=== PATIENT | male | born 1995 | race Caucasian/White ===

== ENCOUNTER → 2016-10-20 | Outpatient (CLI) | payer OTHER ==
[~2016-10-20] MED LIST: CEPH500C PO
== END ==
LOC: C.LAB 03:59
DX: Z02.83 Encounter for blood-alcohol and blood-drug test (principal)

== ENCOUNTER 2021-12-15 12:34 | Inpatient (IN) ==
--- NOTE | 2021-12-15 13:07 | Emergency Department Note ---
Impression & Plan Hypokalemia, Methamphetamine intoxication, Leukocytosis ED Provider Note NAME: ANIYA MULTANI AGE: 26 SEX: M : 1995 ARRIVES VIA: Ambulance INFORMANT: Patient, ED PROVIDER(S): Lex Alvarez MD Chief Complaint: Methamphetamine use HPI: Patient presents from home via EMS due to concern for methamphetamine use as the patient was tachycardic and diaphoretic. The patient reports that he ingested the methamphetamine this morning. Last time used was several days ago the patient has been using methamphetamines for approximate 4 months. Patient denies any chest pains or shortness of breath or abdominal pain. Patient denies any head or neck pain. No numbness tingling or focal weakness. ROS: See HPI for pertinent positives and negatives. A total of 10 systems were reviewed and otherwise negative. May be limited secondary to drug use. Past medical history: See below Surgical history: See below Social history: See below Physical Exam: GENERAL: No apparent distress EYE EXAM: Normal conjunctiva. PERRL and dilated, 5 to 6 cm, no anisocoria, extraocular movements are intact. Oropharynx: Poor dentition. NECK: Supple, no nuchal rigidity, no adenopathy, non-tender. No signs of meningismus. FROM of the neck with good chin to chest and neck extension. No stridor. LUNGS: Clear to auscultation. Normal chest wall mechanics. HEART: Tachycardic and regular, no MRG. ABDOMEN: Abdomen soft, non-tender, normo-active bowel sounds, no masses, no rebound or guarding. BACK: No CVA TTP. SKIN: No rashes and no bruising. UPPER EXTREMITIES: Upper extremities are grossly normal. LOWER EXTREMITIES: Grossly normal, no edema. NEURO EXAM: A&O x3, cranial nerves II-XII grossly intact, normal speech, moves a ll 4 extremities. Differential diagnoses: Overdose, toxicologic, infection, hypoglycemia, electrolyte abnormalities, cardiac sources, intracerebral event, neurologic, trauma, as well as other pathologies. Course: Patient was seen and evaluated the bedside. Full history physical exam was performed. EKG interpreted by me Sinus tachycardia, rate of 131, right axis deviation, no obvious ST elevations. No prior EKGs for comparison. Imaging Studies: See Below Cardiac monitoring: An order was placed for continuous cardiac monitoring. The monitor shows a rate of 122 with tachycardic and regular rhythm. MDM: Patient was seen due to concern for methamphetamine ingestion. Blood work was obtained along with EKG. I was informed the patient did have white count of 32 so the patient did have blood cultures completed along with a lactate was given an empiric dose of cefepime and additional IV fluids. I did order the patient Ativan initially. I did speak with poison control Henry who recommended supportive care and to administer benzodiazepines as needed for tachycardia and or seizures in addition to regular standard care. Tox labs also ordered. The patient has normal kidney function Pro-Braeden is not elevated. Lowers suspicion for infection; however, the patient does have significant elevation white count patient's initial lactate is normal. Patient salicylate Tylenol and alcohol are negative. COVID-negative. Chest x-ray is clear. Given the patient's white count and associated drug use do think patient would benefit from continued monitoring. I did speak the on-call hospitalist Dr. Dominguez and the patient was admitted to the medicine service Past Med/Surg History Medical History No pertinent past medical history Surgical History (Updated 12/15/21 @ 13:53 by Lex Alvarez MD) No pertinent past surgical history Social History (Updated 12/15/21 @ 13:53 by Lex Alvarez MD) Smoking Status: Current some day smoker Hx Alcohol Use: No Hx Substance Use: Yes Non-Prescribed Medications: Methamphetamines Preferred Language: Estonian Feels Safe at Home: Yes Allergies Allergies Allergy/AdvReac Type Severity Reaction Status Date / Time amoxicillin Allergy Intermediate Hives Verified 12/15/21 16:09 Home Meds Home Medications Medication Instructions Recorded Confirmed acetaminophen 500 mg tablet 1,000 mg PO DIRECTED PRN Pain 12/15/21 12/15/21 (Tylenol Extra Strength) Results & Data (ED) Vital Signs Vital Signs - 24 hr 12/15/21 12:47 12/15/21 12:47 12/15/21 12:47 Temperature 36.9 C Temperature Source Oral Pulse Rate 126 H Pulse Rate [Apical] 131 H Respiratory Rate 21 19 Respiratory Depth Normal Blood Pressure 137/89 Blood Pressure [Left Arm] Blood Pressure Mean 105 Blood Pressure Mean [Left Arm] Pulse Oximetry 100 100 97 Oxygen Delivery Method Room Air Room Air Room Air Oxygen Flow Rate 0 Sepsis Recent Fever Within 48 Hours No Sepsis New/Unexplained Change in Mental Status N/A Sepsis Action Taken by Nursing No Action Required 12/15/21 14:39 12/15/21 14:39 12/15/21 17:17 Temperature Temperature Source Pulse Rate Pulse Rate [Apical] 127 H 113 H Respiratory Rate 20 18 Respiratory Depth Blood Pressure Blood Pressure [Left Arm] 133/87 134/80 Blood Pressure Mean Blood Pressure Mean [Left Arm] 102 98 Pulse Oximetry 96 96 96 Oxygen Delivery Method Room Air Room Air Oxygen Flow Rate Sepsis Recent Fever Within 48 Hours Sepsis New/Unexplained Change in Mental Status Sepsis Action Taken by Assisted Medications Current Medication List: was personally reviewed by me Laboratory Data Attestation: I reviewed the patient's lab results. Result diagrams: 12/15/21 12:41 12/15/21 12:41 Lab Results 12/15/21 12/15/21 12/15/21 Range/Units 12:41 12:41 12:41 WBC 30.42 H* (4.8-10.8) K/ul RBC 4.78 (4.63-6.08) M/uL Hgb 14.2 (14.0-18.0) g/dl Hct 39.2 L (40.1-51.0) % MCV 82.0 (80.0-100.0) fL MCH 29.7 (25.0-34.0) pg MCHC 36.2 H (32.0-36.0) g/dL RDW Std Deviation 39.6 (36.4-46.3) fL RDW Coeff of Tiara 13.2 (11.5-14.5) % Plt Count 451 H (130-400) K/uL MPV 9.0 L (9.4-12.4) fL Immature Gran % (Auto) 2.0 % Neut % (Auto) 82.7 % Lymph % (Auto) 7.9 % [place] % (Auto) 6.9 % Eos % (Auto) 0.1 % Baso % (Auto) 0.4 % Neut # (Auto) 25.19 H (1.4-6.5) K/uL Lymph # (Auto) 2.39 (1.2-3.4) K/uL [place] # (Auto) 2.09 H (0.24-0.82) K/uL Eos # (Auto) 0.04 (0-0.50) K/uL Baso # (Auto) 0.11 (0-0.2) K/uL Immature Gran # (Auto) 0.60 H (0.00-0.02) K/uL ESR (0-15) mm/hr Sodium 140 (136-145) mmol/L Potassium 3.2 L (3.5-5.1) mmol/L Chloride 106 (98-107) mmol/L Carbon Dioxide 24 (21-32) mmol/L Anion Gap 10 (3-11) BUN 13 (6-23) mg/dl Creatinine 1.33 (0.6-1.4) mg/dl Est Cr Clr Drug Dosing 73.1 ml/min Est GFR ( Amer) 83.7 ml/min Est GFR (Non-Af Amer) 72.2 ml/min BUN/Creatinine Ratio 9.8 L (10-20) Glucose 65 L (70-99(Fasting)) mg/dl Lactate (0.4-2.0) mmol/L Calcium 10.0 (8.5-10.1) mg/dl Magnesium 2.0 (1.7-2.4) mg/dl Total Bilirubin 0.4 (0.2-1.0) mg/dl AST 17 (13-39) U/L ALT 11 (7-52) U/L Alkaline Phosphatase 63 (34-104) U/L Total Creatine Kinase (30-223) U/L C-Reactive Protein (0-0.5) mg/dl Total Protein 7.7 (6.0-8.3) gm/dl Albumin 4.6 (3.4-5.0) gm/dl Globulin 3.1 (2.5-4.0) gm/dl Albumin/Globulin Ratio 1.5 (0.9-2) Procalcitonin (0-0.5) ng/ml Salicylates < 3.0 L (3.0-30) mg/dl Acetaminophen < 3 L (10-30) ug/ml Ethyl Alcohol mg/dL (<10.0) mg/dl SARS-CoV-2, RNA, NAAT (NEGATIVE) 12/15/21 12/15/21 12/15/21 Range/Units 12:41 12:41 12:41 WBC (4.8-10.8) K/ul RBC (4.63-6.08) M/uL Hgb (14.0-18.0) g/dl Hct (40.1-51.0) % MCV (80.0-100.0) fL MCH (25.0-34.0) pg MCHC (32.0-36.0) g/dL RDW Std Deviation (36.4-46.3) fL RDW Coeff of Tiara (11.5-14.5) % Plt Count (130-400) K/uL MPV (9.4-12.4) fL Immature Gran % (Auto) % Neut % (Auto) % Lymph % (Auto) % [place] % (Auto) % Eos % (Auto) % Baso % (Auto) % Neut # (Auto) (1.4-6.5) K/uL Lymph # (Auto) (1.2-3.4) K/uL [place] # (Auto) (0.24-0.82) K/uL Eos # (Auto) (0-0.50) K/uL Baso # (Auto) (0-0.2) K/uL Immature Gran # (Auto) (0.00-0.02) K/uL ESR (0-15) mm/hr Sodium (136-145) mmol/L Potassium (3.5-5.1) mmol/L Chloride (98-107) mmol/L Carbon Dioxide (21-32) mmol/L Anion Gap (3-11) BUN (6-23) mg/dl Creatinine (0.6-1.4) mg/dl Est Cr Clr Drug Dosing ml/min Est GFR ( Amer) ml/min Est GFR (Non-Af Amer) ml/min BUN/Creatinine Ratio (10-20) Glucose (70-99(Fasting)) mg/dl Lactate (0.4-2.0) mmol/L Calcium (8.5-10.1) mg/dl Magnesium (1.7-2.4) mg/dl Total Bilirubin (0.2-1.0) mg/dl AST (13-39) U/L ALT (7-52) U/L Alkaline Phosphatase (34-104) U/L Total Creatine Kinase 205 (30-223) U/L C-Reactive Protein (0-0.5) mg/dl Total Protein (6.0-8.3) gm/dl Albumin (3.4-5.0) gm/dl Globulin (2.5-4.0) gm/dl Albumin/Globulin Ratio (0.9-2) Procalcitonin < 0.05 (0-0.5) ng/ml Salicylates (3.0-30) mg/dl Acetaminophen (10-30) ug/ml Ethyl Alcohol mg/dL < 10.0 (<10.0) mg/dl SARS-CoV-2, RNA, NAAT (NEGATIVE) 12/15/21 12/15/21 12/15/21 Range/Units 14:10 15:53 15:53 WBC (4.8-10.8) K/ul RBC (4.63-6.08) M/uL Hgb (14.0-18.0) g/dl Hct (40.1-51.0) % MCV (80.0-100.0) fL MCH (25.0-34.0) pg MCHC (32.0-36.0) g/dL RDW Std Deviation (36.4-46.3) fL RDW Coeff of Tiara (11.5-14.5) % Plt Count (130-400) K/uL MPV (9.4-12.4) fL Immature Gran % (Auto) % Neut % (Auto) % Lymph % (Auto) % [place] % (Auto) % Eos % (Auto) % Baso % (Auto) % Neut # (Auto) (1.4-6.5) K/uL Lymph # (Auto) (1.2-3.4) K/uL [place] # (Auto) (0.24-0.82) K/uL Eos # (Auto) (0-0.50) K/uL Baso # (Auto) (0-0.2) K/uL Immature Gran # (Auto) (0.00-0.02) K/uL ESR 12 (0-15) mm/hr Sodium (136-145) mmol/L Potassium (3.5-5.1) mmol/L Chloride (98-107) mmol/L Carbon Dioxide (21-32) mmol/L Anion Gap (3-11) BUN (6-23) mg/dl Creatinine (0.6-1.4) mg/dl Est Cr Clr Drug Dosing ml/min Est GFR ( Amer) ml/min Est GFR (Non-Af Amer) ml/min BUN/Creatinine Ratio (10-20) Glucose (70-99(Fasting)) mg/dl Lactate 1.4 (0.4-2.0) mmol/L Calcium (8.5-10.1) mg/dl Magnesium (1.7-2.4) mg/dl Total Bilirubin (0.2-1.0) mg/dl AST (13-39) U/L ALT (7-52) U/L Alkaline Phosphatase (34-104) U/L Total Creatine Kinase (30-223) U/L C-Reactive Protein < 0.50 (0-0.5) mg/dl Total Protein (6.0-8.3) gm/dl Albumin (3.4-5.0) gm/dl Globulin (2.5-4.0) gm/dl Albumin/Globulin Ratio (0.9-2) Procalcitonin (0-0.5) ng/ml Salicylates (3.0-30) mg/dl Acetaminophen (10-30) ug/ml Ethyl Alcohol mg/dL (<10.0) mg/dl SARS-CoV-2, RNA, NAAT (NEGATIVE) 12/15/21 Range/Units 15:55 WBC (4.8-10.8) K/ul RBC (4.63-6.08) M/uL Hgb (14.0-18.0) g/dl Hct (40.1-51.0) % MCV (80.0-100.0) fL MCH (25.0-34.0) pg MCHC (32.0-36.0) g/dL RDW Std Deviation (36.4-46.3) fL RDW Coeff of Tiara (11.5-14.5) % Plt Count (130-400) K/uL MPV (9.4-12.4) fL Immature Gran % (Auto) % Neut % (Auto) % Lymph % (Auto) % [place] % (Auto) % Eos % (Auto) % Baso % (Auto) % Neut # (Auto) (1.4-6.5) K/uL Lymph # (Auto) (1.2-3.4) K/uL [place] # (Auto) (0.24-0.82) K/uL Eos # (Auto) (0-0.50) K/uL Baso # (Auto) (0-0.2) K/uL Immature Gran # (Auto) (0.00-0.02) K/uL ESR (0-15) mm/hr Sodium (136-145) mmol/L Potassium (3.5-5.1) mmol/L Chloride (98-107) mmol/L Carbon Dioxide (21-32) mmol/L Anion Gap (3-11) BUN (6-23) mg/dl Creatinine (0.6-1.4) mg/dl Est Cr Clr Drug Dosing ml/min Est GFR ( Amer) ml/min Est GFR (Non-Af Amer) ml/min BUN/Creatinine Ratio (10-20) Glucose (70-99(Fasting)) mg/dl Lactate (0.4-2.0) mmol/L Calcium (8.5-10.1) mg/dl Magnesium (1.7-2.4) mg/dl Total Bilirubin (0.2-1.0) mg/dl AST (13-39) U/L ALT (7-52) U/L Alkaline Phosphatase (34-104) U/L Total Creatine Kinase (30-223) U/L C-Reactive Protein (0-0.5) mg/dl Total Protein (6.0-8.3) gm/dl Albumin (3.4-5.0) gm/dl Globulin (2.5-4.0) gm/dl Albumin/Globulin Ratio (0.9-2) Procalcitonin (0-0.5) ng/ml Salicylates (3.0-30) mg/dl Acetaminophen (10-30) ug/ml Ethyl Alcohol mg/dL (<10.0) mg/dl SARS-CoV-2, RNA, NAAT NEGATIVE (NEGATIVE) Administered Medications Discontinued Medications Dextrose (Dextrose 50% 50 Ml Syringe) 50 ml IV NOW ONE Stop: 12/15/21 13:54 Last Admin: 12/15/21 14:38 Dose: 50 ml Documented By: KV Sodium Chloride (Nss 1000ml) 1,000 mls @ 999 mls/hr IV .Q1H1M CAMELIA Stop: 12/15/21 14:30 Last Infusion: 12/15/21 15:58 Dose: 0 mls/hr Documented By: Admin: 12/15/21 13:35 Dose: 999 mls/hr Documented By: CUCA Cefepime HCl (Maxipime) 2,000 mg in 20 mls @ 5 mls/min IV NOW STA; Protocol Stop: 12/15/21 13:47 Last Admin: 12/15/21 14:37 Dose: 5 mls/min Documented By: PREMA Sodium Chloride (Nss 1000ml) 1,000 mls @ 999 mls/hr IV .Q1H1M ONE Stop: 12/15/21 14:46 Last Infusion: 12/15/21 15:57 Dose: 0 mls/hr Documented By: Admin: 12/15/21 14:37 Dose: 999 mls/hr Documented By: PREMA Lorazepam (Lorazepam 2 Mg/2 Ml Syr) 2 mg IV NOW STA; Protocol Stop: 12/15/21 13:29 Last Admin: 12/15/21 13:35 Dose: 2 mg Documented By: CUCA Imaging Data Radiologist's Impression: Chest X-Ray 12/15/21 13:45 SINGLE VIEW CHEST CLINICAL HISTORY: Leukocytosis. Drug abuse. FINDINGS: 2 AP, portable, upright chest radiographs are compared to study dated 05/13/2007. The cardiomediastinal silhouette is unremarkable. The lungs and pleural spaces are clear. No pneumothorax is seen. The bony thorax is grossly intact. IMPRESSION: No active disease in the chest. ACT 112: Negative or not required by law. Electronically signed by: Ashok La M.D. 12/15/2021 2:04 PM Discharge Plan Visit Data Chief Complaint: Overdose (Accidental) ED Provider: Lex Alvarez Discharge Problem: Hypokalemia, Methamphetamine intoxication, Leukocytosis Patient Disposition: Admitted As Inpatient Discharge Instructions Interventions: ED Discharge Assessment Last Done: 12/15/21 17:51 Forms Stand Alone Forms: Jybe Prescriptions Prescriptions: No Action acetaminophen [Tylenol Extra Strength] 500 mg Tablet 1,000 mg PO DIRECTED PRN (Reason: Pain) Referrals Referrals: PCP,NO [Primary Care Provider] -
[2021-12-15] MEDS ORDERED: LORazepam 2 MG/1 ML VIAL IV STA ×2 (13:28→16:56)
[2021-12-15] MEDS ORDERED: SODIUM CHLORIDE 0.9% 1000ML 1,000 ML IV SCH (13:30)
[2021-12-15 13:39] LABS: Hematocrit (blood only) 39.2 % (40.1-51.0); Hemoglobin 14.2 g/dl (14.0-18.0); Mean Corpuscular Hemoglobin 29.7 pg (25.0-34.0); Mean Corpuscular Hgb Conc 36.2 g/dL (32.0-36.0); Platelet Count 451 K/uL (130-400); RDW Coefficient of Variation 13.2 % (11.5-14.5); RDW Standard Deviation 39.6 fL (36.4-46.3); Red Blood Count 4.78 M/uL (4.63-6.08); White Blood Count 30.42 K/ul (4.8-10.8)
[2021-12-15] MEDS ORDERED: CEFEPIME 2,000 MG/20 ML VIAL IV STA (13:44)
[2021-12-15] MEDS ORDERED: SODIUM CHLORIDE 0.9% 1000ML 1,000 ML IV ONE (13:46)
[2021-12-15 13:48] LABS: Albumin Globulin Ratio 1.5 (0.9-2); Albumin Level 4.6 gm/dl (3.4-5.0); BUN Creatinine Ratio 9.8 (10-20); Bilirubin,Total 0.4 mg/dl (0.2-1.0); Creatinine Clr Calc Pharmacy 73.1 ml/min; Est GFR (African American) 83.7 ml/min; Est GFR (Non-African American) 72.2 ml/min; Globulin 3.1 gm/dl (2.5-4.0); Potassium 3.2 mmol/L (3.5-5.1); Total Protein 7.7 gm/dl (6.0-8.3)
[2021-12-15] MEDS ORDERED: DEXTROSE 50% 50 ML SYRINGE IV ONE (13:53)
[2021-12-15 14:04] LABS: Basophils # (auto) 0.11 K/uL (0-0.2); Basophils % (auto) 0.4 %; Eosinophils # (auto) 0.04 K/uL (0-0.50); Eosinophils % (auto) 0.1 %; Lymphocytes # (auto) 2.39 K/uL (1.2-3.4); Lymphocytes % (auto) 7.9 %; Monocytes # (auto) 2.09 K/uL (0.24-0.82); Monocytes % (auto) 6.9 %; Neutrophils # (auto) 25.19 K/uL (1.4-6.5); Neutrophils % (auto) 82.7 %
--- NOTE | 2021-12-15 14:05 | XRay Report ---
SINGLE VIEW CHEST CLINICAL HISTORY: Leukocytosis. Drug abuse. FINDINGS: 2 AP, portable, upright chest radiographs are compared to study dated 05/13/2007. The cardio mediastinal silhouette is unremarkable. The lungs and pleural spaces are clear. No pneumothorax is se en. The bony thorax is grossly intact. IMPRESSION: No active disease in the chest. ACT 112: Negative or not required by law. Electronically signed by: Ashok La M.D. 12/15/2021 2:04 PM
[2021-12-15 14:15] LABS: Acetaminophen < 3 ug/ml (10-30); Salicylate < 3.0 mg/dl (3.0-30)
--- NOTE | 2021-12-15 15:49 | Electrocardiogram Report ---
Test Reason : Blood Pressure : / mmHG Vent. Rate : 131 BPM Atrial Rate : 131 BPM P-R Int : 128 ms QRS Dur : 086 ms QT Int : 304 ms P-R-T Axes : 071 097 029 degrees QTc Int : 448 ms Sinus tachycardia Left atrial enlargement Rightward axis Borderline ECG When compared with ECG of 10-MAR-2010 02:38, Vent. rate has increased BY 49 BPM Confirmed by Dalton Freire ([id number]) on 12/15/2021 3:49:02 PM Referred By: Confirmed By:Dalton Freire
--- NOTE | 2021-12-15 16:49 | History & Physical Report ---
Date of Service December 15, 2021 Assessment & Plan (1) Methamphetamine intoxication: Plan: with associated tachycardia and tremulousness - Admit to med/surg with telemetry - Ativan 1mg IV q4h prn agitation - Aggressive IVF w/ NSS at 150 ml/hr - Consult case management for interest in inpatient drug rehab - UDS ordered by ED, uncollected, may need to consider straight cath - Diltiazem 30mg PO TID ordered by admit attending - will determine ongoing need for this in AM (2) Leukocytosis: Plan: - Very low index of suspicion for acute infection, suspect reactive from meth use - Denies IV drug use, therefore low risk of endocarditis - Echo ordered - Given a dose of Cefepime in ED, will hold off on any further antibiotics - Blood cultures collected - CRP and Procal WNL (3) Hypokalemia: Plan: - Potassium supplemented with KCl 40meq PO x1 Plan Regular diet ordered No DVT ppx as he is young and healthy Repeat CBC, CMP, and mag in AM. Plan of care d/w Dr. Dominguez, further orders will be implemented as warranted. History of Present Illness Chief Complaint: Meth overdose Primary Care Provider: NO PCP Saturnino Becerril is a 26 yo male with a pmhx of opioid abuse with a prior overdose at age 14 who presented to the ER this afternoon accompanied by his father for evaluation after drug overdose and seizure-like activity was witnessed this morning. Patient who is currently awake and somewhat alert, reports that he overdosed on methamphetamine. He notes that he has been consistently using meth for the past 4 months, on an every other day basis. He either smokes it or snorts it. He normally lives with his grandmother, has been in and out of work. Father believes that he has been depressed. Was planning to take him today to apply for medical assistance in order for him to get insurance to cover treatment for depression. Per his father, he states that yesterday his grandmother reported that he was not acting normally. Was pacing up and down the stairs and was sweating. He left his grandmother's home and went to his father's. Per his dad, he was coherent and they were sitting together watching TV. Today, prior to leaving the house, father found patient in the corner convulsing and profusely sweating. He summoned EMS services and he was brought to the ER for further evaluation. In the ED, his HR is in the 130s, EKG demonstrates sinus tachycardia. His wbc count is markedly elevated at 30,420 but patient is afebrile, denies shortness of breath or chest pain. His potassium is slightly low at 3.2. CRP and proca lcitonin are both negative. He reports this is the first time he has overdosed on meth. He recognizes he has a problem and is interested in rehab. He denies use of IV drugs including heroin. Denies use of marijuana or alcohol use. He denies current opioid use. ED medicated pt with 2L of IVF, a dose of Ativan 2mg IV x1 and an amp of D50. He was also given a dose of Cefepime due to his leukocytosis. Pt has been referred to the hospitalist service for admission. Allergies Allergy/AdvReac Type Severity Reaction Status Date / Time amoxicillin Allergy Intermediate Hives Verified 12/15/21 16:09 Home Medications Medication Instructions Recorded Confirmed Type acetaminophen 500 mg tablet 1,000 mg PO DIRECTED PRN Pain 12/15/21 12/15/21 History (Tylenol Extra Strength) Past Med/Surg History Medical History No pertinent past medical history Surgical History No pertinent past surgical history Social History Smoking Status: Current every day smoker Hx Alcohol Use: No Hx Substance Use: Yes Non-Prescribed Medications: Methamphetamines Last Used Substance: Just Prior to Arrival Last Used Substance Other:: 1550 today Preferred Language: Bangladeshi Communication Ability: Effective 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 Denies fever, chills, fatigue, headache, nasal congestion, sore throat, cough, chest pain, shortness of breath, palpitations, orthopnea, PND, abdominal pain, n/v/d, constipation, dysuria, hematuria, frequency, back pain, joint pain or swelling, easy bruising or bleeding, skin lesions or rashes. Physical Exam Physical Exam: GENERAL: 26 yo Well-developed, well-nourished WM. NAD. EYES: EOMI. Pupils dilated. Anicteric. HENT: Moist mucous membranes. Poor dentition. No scleral icterus. No cervical lymphadenopathy. LUNGS: Clear to auscultation bilaterally. No accessory muscle use. No W/R/R. CARDIOVASCULAR: Tachycardic w/o m/g/r ABDOMEN: Soft, non-tender and non-distended. No palpable masses. Bowel sounds normoactive x 4 quad. EXTREMITIES: No edema. Non-tender. Peripheral pulses +2/4. NEUROLOGIC: A&O x3. Tremulous. No focal neurological deficits. CN II-XII grossly intact. PSYCHIATRIC: Cooperative. Appropriate mood and affect. SKIN: Warm, dry, intact. No rashes or lesions. Results & Data Results & Data ([facility]) Vital Signs (Past 12 Hours) Vital Signs Temp Pulse Pulse Resp BP BP Pulse Ox 12/15/21 14:39 127 H 20 133/87 96 12/15/21 14:39 96 12/15/21 12:47 131 H 19 97 12/15/21 12:47 100 12/15/21 12:47 36.9 C 126 H 21 137/89 100 O2 Del Method O2 Flow Rate 12/15/21 14:39 Room Air 12/15/21 14:39 Room Air 12/15/21 12:47 Room Air 12/15/21 12:47 Room Air 0 12/15/21 12:47 Room Air Laboratory Results 12/15/21 12:41 12/15/21 12:41 Diagnostic Findings Chest X-Ray 12/15/21 13:45 SINGLE VIEW CHEST CLINICAL HISTORY: Leukocytosis. Drug abuse. FINDINGS: 2 AP, portable, upright chest radiographs are compared to study dated 05/13/2007. The cardiomediastinal silhouette is unremarkable. The lungs and pleural spaces are clear. No pneumothorax is seen. The bony thorax is grossly intact. IMPRESSION: No active disease in the chest. ACT 112: Negative or not required by law. Electronically signed by: Ashok La M.D. 12/15/2021 2:04 PM Supervising Physician Co-Signing Physician Notes Patient seen and examined at bedside, during face to face encounter obtained a history and physical examination. I discussed plan of care with DOMINICK Bonilla and patient. I reviewed above note and agree with it. Patient admitted for methamphetamine induced psychotic disorder. will admit for supportive care. PG Care Time/CCT Total # of Minutes Spent Total Time Spent with Patient: Total time spent is greater than 50% in coordination of care (as documented) at patient's floor/unit and/or counseling patient: Coding Level of Care Code 83569 Initial Inpt Care Lvl 3 Diagnoses Methamphetamine intoxication F15.929 Leukocytosis D72.829 Hypokalemia E87.6
[2021-12-15] MEDS ORDERED: POTASSIUM CHLORIDE CRTAB 20 MEQ TABCR PO STA (17:25)
[2021-12-15] MEDS: SODIUM CHLORIDE 0.9% 1000ML 1,000 ML IV SCH (19:08)
[2021-12-15] MEDS ORDERED: ONDANSETRON INJ 2 MG/ML 2 ML VIAL IV PRN (21:04)
[2021-12-15] MEDS ORDERED: LORazepam 1 MG in SYRINGE 0 ML IV PRN (21:04)
[2021-12-15] MEDS ORDERED: ACETAMINOPHEN 325 MG TAB PO PRN (21:04)
[2021-12-15] MEDS: dilTIAZem HCL 30 MG TAB PO SCH (23:09)
--- NOTE | 2021-12-16 00:13 | Communication Note ---
Date of Service: December 16, 2021 informed by nurse of " disoriented and believes he is in a school and then in a shoot out in an alley. " patient subsequent pulled out his IV upgrading to PCU. ordering now dose IV ativan 3mg. continue one on one. on my exam, he does not appear agitated and is answering questions, states he pulled out IV because his arm felt funny. nursing staff expressed concern that the ativan might worsen agitation and asked about haldol or ketamine. reviewed poison control recs (benzos) and will stay with ativan for now. haldol if combative. ketamine not indicated update at 2AM: patient now moved to PCU. the 3mg ativan had not been administered yet, so at this time, will dc to order because patient has agitation and tremors but is redirectable. Changing 1mg q4h prn to 2mg q4h prn.
[2021-12-16] MEDS ORDERED: LORazepam 3 MG in SYRINGE 0 ML IV ONE (00:15)
[2021-12-16] MEDS: NICOTINE 14 MG/24 HR PATCH TD SCH ×2 (01:45→08:24)
[2021-12-16] MEDS ORDERED: LORazepam 2 MG in SYRINGE 0 ML IV PRN (01:46)
[2021-12-16] MEDS: SODIUM CHLORIDE 0.9% 1000ML 1,000 ML IV SCH ×2 (02:04→08:46)
[2021-12-16] MEDS: LORazepam 2 MG in SYRINGE 0 ML IV PRN ×4 (03:01→16:51)
[2021-12-16 07:07] LABS: Basophils # (auto) 0.08 K/uL (0-0.2); Basophils % (auto) 0.5 %; Eosinophils % (auto) 1.3 %; Hematocrit (blood only) 33.6 % (40.1-51.0); Hemoglobin 11.7 g/dl (14.0-18.0); Immature Granulocytes # (auto) 0.07 K/uL (0.00-0.02); Immature Granulocytes % (auto) 0.5 %; Lymphocytes # (auto) 3.05 K/uL (1.2-3.4); Lymphocytes % (auto) 20.2 %; Mean Corpuscular Hemoglobin 29.5 pg (25.0-34.0); Mean Corpuscular Hgb Conc 34.8 g/dL (32.0-36.0); Mean Corpuscular Volume 84.8 fL (80.0-100.0); Mean Platelet Volume 8.8 fL (9.4-12.4); Monocytes # (auto) 1.09 K/uL (0.24-0.82); Monocytes % (auto) 7.2 %; Neutrophils # (auto) 10.64 K/uL (1.4-6.5); Neutrophils % (auto) 70.3 %; Platelet Count 299 K/uL (130-400); RDW Coefficient of Variation 13.2 % (11.5-14.5); RDW Standard Deviation 40.5 fL (36.4-46.3); Red Blood Count 3.96 M/uL (4.63-6.08); White Blood Count 15.13 K/ul (4.8-10.8)
[2021-12-16 07:27] LABS: Albumin Globulin Ratio 1.7 (0.9-2); Albumin Level 4.4 gm/dl (3.4-5.0); BUN Creatinine Ratio 8.9 (10-20); Bilirubin,Total 0.7 mg/dl (0.2-1.0); Calcium 9.3 mg/dl (8.5-10.1); Creatinine Clr Calc Pharmacy 117.8 ml/min; Est GFR (African American) 134.2 ml/min; Est GFR (Non-African American) 115.8 ml/min; Globulin 2.6 gm/dl (2.5-4.0); Magnesium 1.9 mg/dl (1.7-2.4); Potassium 3.8 mmol/L (3.5-5.1)
--- NOTE | 2021-12-16 10:24 | XCELERA ---
[id number]
[2021-12-16] MEDS: dilTIAZem HCL 30 MG TAB PO SCH (11:17)
--- NOTE | 2021-12-16 11:20 | Hospitalist Progress Note ---
Date of Service December 16, 2021 Assessment & Plan (1) Methamphetamine intoxication: Plan: with associated tachycardia and tremulousness - Continue tele for today, anticipate can transition off tele tomorrow - Ativan 2mg IV q4h prn agitation - Continue aggressive IVF w/ NSS at 150 ml/hr - Consult case management for interest in inpatient drug rehab - UDS ordered by ED, uncollected, will have RN straight cath - Diltiazem 30mg PO TID ordered by admit attending - no to continue, will d/c (2) Leukocytosis: Plan: - Very low index of suspicion for acute infection, suspect reactive from meth use - Denies IV drug use, therefore low risk of endocarditis - Echo ordered - no evidence of vegetation - Given a dose of Cefepime in ED, will hold off on any further antibiotics - Blood cultures collected, pending - CRP and Procal WNL - WBC count greatly improved today down to 15 (from 30) (3) Hypokalemia: Plan: - Potassium supplemented/normalized this AM (4) Tobacco use disorder: Plan: - Tobacco cessation encouraged - Nicotine patch ordered last night by resident - Given that he smokes >1 ppd, increase to 21mg TD daily Plan Continue interventions as outlined above. Case management to see and discuss rehab options. Given he is not insured, this will need to be d/w [facility] to determine if they will cover the cost of inpatient rehab. CM to get staff to come in and assist pt with MA paperwork and submission. He is approaching dc readiness- anticipate could go to rehab as early as tomorrow if a place is found that will accept him and county willing to cover cost. Not entirely sure if a rehab facility will take with MA pending. Plan d/w Dr. Doyle. Admission and Anticipated Discharge Date Admission Date: December 15, 2021 Review of Systems Review of Systems: All systems reviewed and are unremarkable except as noted in HPI and below. Denies fever, chills, fatigue, headache, nasal congestion, sore throat, cough, chest pain, shortness of breath, palpitations, orthopnea, PND, abdominal pain, n/v/d, constipation, dysuria, hematuria, frequency, back pain, joint pain or swelling, easy bruising or bleeding, skin lesions or rashes. Physical Exam Physical Exam: GENERAL: 26 yo Well-developed, well-nourished WM. NAD. EYES: EOMI. PERRLA. LUNGS: Clear to auscultation bilaterally. No accessory muscle use. No W/R/R. CARDIOVASCULAR: RRR w/o m/g/r ABDOMEN: Soft, non-tender and non-distended. BS normoactive x 4 quad. EXTREMITIES: No edema. Non-tender. Peripheral pulses +2/4. NEUROLOGIC: A&O x3. Tremors have improved. Nonfocal PSYCHIATRIC: Cooperative. Appropriate mood and affect. SKIN: Warm, dry, intact. No rashes or lesions. Results & Data Results & Data ([facility]) Vital Signs (Past 12 Hours) Vital Signs Temp Pulse Pulse Resp BP Pulse Ox O2 Del Method 12/16/21 07:36 36.7 C 73 18 137/87 100 Room Air 12/16/21 02:20 109 H 12/16/21 01:53 36.7 C 92 H 15 142/85 H 98 Room Air Laboratory Results 12/16/21 06:52 12/16/21 06:52 PG Care Time/CCT Total # of Minutes Spent Total Time Spent with Patient: Total time spent is greater than 50% in coordination of care (as documented) at patient's floor/unit and/or counseling patient: Coding Level of Care Code 63453 Subseq Hosp Care Lvl 2 Diagnoses Methamphetamine intoxication F15.929 Leukocytosis D72.825 Leukocytosis type: bandemia Hypokalemia E87.6 Tobacco use disorder F17.200 (1) Leukocytosis Leukocytosis type: bandemia Qualified Code(s): D72.825 - Bandemia
[2021-12-16] MEDS: NICOTINE 21 MG/24 HR TDSY TD SCH (13:16)
[2021-12-16 14:02] LABS: Amphetamines+Metham, Urine Pos (Neg); Barbiturates, Urine Neg (Neg); Benzodiazepine, Urine Neg (Neg); Cocaine, Urine Neg (Neg); MDMA (Ecstacy), Urine Pos (Neg); Methadone, Urine Neg (Neg); Opiate, Urine Neg (Neg); Phencyclidine, Urine Neg (Neg)
[2021-12-16] MEDS ORDERED: OLANZapine 10 MG/2.1 ML SDV IM STA (19:05)
[2021-12-17] MEDS: LORazepam 2 MG in SYRINGE 0 ML IV PRN ×2 (03:57→15:13)
[2021-12-17] MEDS: NICOTINE 21 MG/24 HR TDSY TD SCH (08:01)
--- NOTE | 2021-12-17 11:17 | Communication Note ---
Date of Service: December 17, 2021 Consult for suspected methamphetamine-induced psychosis with paranoia. Spoke with hospitalist provider last night and recommended option to add zyprexa since ativan prn was not providing enough relief and patient was becoming agitated. Patient to be seen within 24 hours for psychiatry consult.
--- NOTE | 2021-12-17 14:03 | Psychiatric Consultation ---
Date of Consultation December 17, 2021 Impression / Recommendations Impression 26 yo admitted medically with methamphetamine induced psychosis as well as unspecified depression likely a combination of substance-induced as well as MDD. At this point risk of harm to self and others is moderate and increased due to substance use and possible SI/vague likely passive SI but difficult to clearly assess given ongoing psychosis. As mental status and psychosis improves will determine if substance use treatment versus dual diagnosis inpatient psychiatry is most appropriate based on risk assessment once medically stable. (1) Methamphetamine intoxication: (2) Methamphetamine-induced psychotic disorder: (3) Depression: Plan 12/17/21: -would start olanzapine 2.5mg BID po if stable enough from cardiac standpoint -Behavioral emergency would use: olanzapine 5mg IM (continue to monitor QTc, ensure <500ms) -Agree with ativan as this can help with methamphetamine induced psychosis and agitation -Cannot leave AMA -Continue 1-on-1 given agitation Psych History Identifying Data 26 yo man currently living with his grandmother in [facility] with history of depression and polysubstance use admitted medically for methamphetamine intoxication. Psychiatry consulted for recommendations for psychosis. Chief Complaint "My thoughts are really negative, I'm not sure if it's suicidal ideation or not". History of Present Illness Saturnino was admitted after methamphetamine intoxication and developed worsening paranoia and psychosis. Last night was agitated and disoriented and pulled out his IV. States he had been feeling depressed and used a lot of methamphetamine to "get high" but notes that he also "didn't really care what happened to me, if I lived or ". He isn't sure if he's experiencing current SI but feels depressed and has "negative thoughts" as well as feeling like his mind isn't clear. Continues to have some paranoia about being monitored. Per his father, who is at bedside, he's showing improvement already in his thoughts compared to when he first brought him to the ED on 12/15/21 but still isn't back to his normal cognitive baseline. He's interested in substance use treatment. Substance use history reviewed-nicotine and marijuana use. History fentanyl use, last use 6 months ago, via snorting. After stopping fentanyl switched to methamphetamine use via smoking and snorting and states he hasn't gone more than 4 days without using in the last 6 months. Denies any current meth cravings but is craving nicotine and cannabis. Denies any significant alcohol use nor any other recreational substance use. Further recent history per psych liason note from last night, 12/16/21: "Saturnino was lying on his bed eating a popsicle. He was agreeable to talk with Wilma (poem writer). Saturnino was alert, with mumbled and slurred speech. Able to answer questions and follow commands. Distractibility and only being able to understand his current situation and location occasionally. He has been stating that he is having visual and auditory hallucinations. He was having trouble explaining what he has been seeing and hearing other than people talking around him. Has been talking about "freaking aliens." Displays paranoia about some of his hallucinations. Saturnino said that has been having vivid nightmares about his father, and other people pouring water on himself. He states he has been feeling suicidal more recently. Denies homicidal ideations. Patient was asked when he used meth last. He initially stated 4 days ago but then changed it to 2. States his support is from his father and brother. Has reportedly went to rehab for 18 days. Agreeable for inpatient rehab once discharged." Allergies Allergy/AdvReac Type Severity Reaction Status Date / Time amoxicillin Allergy Intermediate Hives Verified 12/15/21 16:09 Home Medications Medication Instructions Recorded Confirmed Type acetaminophen 500 mg tablet 1,000 mg PO DIRECTED PRN Pain 12/15/21 12/15/21 History (Tylenol Extra Strength) Substance Abuse History see HPI Personal History Living Arrangements: Home (with his grandmother) Beliefs That Will Affect Care: None Patient History Medical History No pertinent past medical history Surgical History No pertinent past surgical history Social History Smoking Status: Current every day smoker Do You Dip or Chew Tobacco: No; Tobacco Cessation Education Requested by Patient: Yes Hx Alcohol Use: No Hx Substance Use: Yes Non-Prescribed Medications: Methamphetamines Last Used Substance: Just Prior to Arrival Last Used Substance Other:: 1550 today Preferred Language: Yi Communication Ability: Effective [employer] Consultant Required: No Beliefs That Will Affect Care: None Current Living Situation: Family Current Living Situation Comment: lives w/ gram Other Information That Helps Us Care for You: No Feels Safe at Home: Yes Safety Concerns: Feels Safe At This Time Assistive Devices: None Physical Exam Psychiatric: Orientation: alert and oriented x 3 Apperance: appropriately dressed and appropriately groomed Eye Contact: + fair eye contact Motor Behavior: no abnormal motor movements Speech: normal rate/rhythm/volume of speech Affect: + anxious affect Mood: + depressed mood and + anxious mood Thought Process: + looseness of associations Thought Content: + paranoid and + delusions Suicidal Thoughts: denies suicidal thoughts (but not clearly, seems ambivalent about this), denies suicidal plan and denies suicidal intent Homicidal Thoughts: denies homicidal thoughts Hallucinations: no auditory hallucinations and no visual hallucinations Cognition: recent memory grossly intact, remote memory grossly intact, attention grossly intact and language grossly intact Estimated Intelligence: consistent with education level Insight: + limited insight Judgement: + limited judgement Vital Signs (Past 24 Hours): Last Vital Signs Temp 36.5 C 12/17/21 12:55 Pulse 103 H 12/17/21 12:55 Resp 20 12/17/21 12:55 BP 129/80 12/17/21 12:55 Pulse Ox 99 12/17/21 12:55 O2 Del Method 12/17/21 08:05 O2 Flow Rate 0 12/15/21 12:47 Review of Systems All systems reviewed & are unremarkable except as noted in HPI & below Results & Data ([facility]) Medications Administered Lorazepam 2 mg/ Syringe 2 mls @ 2 mls/min IV Q4H PRN PRN Reason: severe agitation Stop: 01/15/22 02:59 Last Admin: 12/17/21 03:57 Dose: 2 mls/min Documented By: Admin: 12/16/21 16:51 Dose: 2 mls/min Documented By: Admin: 12/16/21 12:54 Dose: 2 mls/min Documented By: Admin: 12/16/21 08:24 Dose: 2 mls/min Documented By: Admin: 12/16/21 03:01 Dose: 2 mls/min Documented By: FRANCISCO Miscellaneous (Remove Nicoderm Patch) 1 each N/A DAILY@9012 [facility] Stop: 01/15/22 11:14 Last Admin: 12/17/21 08:01 Dose: Not Given Documented By: Admin: 12/16/21 13:00 Dose: 1 each Documented By: VLADIMIR Nicotine (Nicotine 21 Mg/24 Hr Tdsy) 21 mg TD QAM [facility] Stop: 01/15/22 11:14 Last Admin: 12/17/21 08:01 Dose: 21 mg Documented By: Admin: 12/16/21 13:16 Dose: 21 mg Documented By: VLADIMIR Coding Level of Care Code 53488 Inpt Consult Level 3 Diagnoses Methamphetamine intoxication F15.929 Methamphetamine-induced psychotic disorder F15.959 Depression F32.A
[2021-12-17] MEDS ORDERED: NICOTINE POLACRILEX 2 MG GUM MT PRN (14:09)
[2021-12-17] MEDS ORDERED: HALOPERIDOL LACTATE 5 MG/ML 1 ML VIAL IV STA (16:27)
[2021-12-17] MEDS ORDERED: OLANZapine 10 MG/2.1 ML SDV IM PRN (16:29)
--- NOTE | 2021-12-17 16:35 | Hospitalist Progress Note ---
Date of Service December 17, 2021 Assessment & Plan (1) Methamphetamine intoxication: Plan: with associated tachycardia and tremulousness - Ativan 2mg IV q4h prn agitation - - Consult case management for interest in inpatient drug rehab - UDS ordered by ED, methamphetamine, mdma Psychiatry evaluation feels patient is a danger to himself at this current time should not be allowed to leave AMA. He will be given Ativan and Zyprexa Zyprexa be scheduled at 2.5 twice daily we will check a QT intervals in the morning keep him on the monitor have as needed Haldol and eventually IM Zyprexa for agitation - (2) Leukocytosis: Plan: - Very low index of suspicion for acute infection, suspect reactive from meth use - Denies IV drug use, therefore low risk of endocarditis - Echo ordered - no evidence of vegetation - Given a dose of Cefepime in ED, will hold off on any further antibiotics - Blood cultures collected, negative to date - CRP and Procal WNL - WBC count greatly improved (3) Hypokalemia: Plan: - Potassium supplemented/normalized this AM (4) Tobacco use disorder: Plan: - Tobacco cessation encouraged - Nicotine patch ordered last night by resident - Given that he smokes >1 ppd, increase to 21mg TD daily Admission and Anticipated Discharge Date Admission Date: December 15, 2021 Subjective pt is agitated , father at the bedside, pt is restless but can make sense of to discuss his overdose, did admit to making mistakes Review of Systems Review of Systems: Moderate distress and agitation no headache, no visual changes no speech or swallowing issues no chest pain, pressure or palpitations no shortness of breath, cough or wheezes no abdominal pain, nausea or vomiting, diarrhea or constipation no dysuria, hematuria or frequency no focal joint pain or swelling no back pain, CVA tenderness or radicular pain no bruising, bleeding or rashes no focal signs of weakness or numbness or altered sensation no complaints of anxiety or depression.. Physical Exam Physical Exam: The patient appeared stable slightly confused slight psychomotor agitation Vital signs as documented. Lungs are clear to auscultation and appear unlabored Cardiac exam, Rhythm is regular.. No murmurs, rubs or gallops. Abdominal exam reveals normal bowel sounds, soft non tender, no masses Extremities are nonedematous and both pedal pulses are normal. Neurologic exam is alert and oriented x3, no focal loss of strength or sensation Skin is without bruises or rashes Psychologically is with agitation is likely still withdrawing from methadone to the endpoints of other substances that he took prior to admission Results & Data Results & Data ([facility]) Vital Signs (Past 12 Hours) Vital Signs Temp Pulse Pulse Resp BP Pulse Ox O2 Del Method 12/17/21 16:20 97.7 F 81 21 142/92 H 99 Room Air 12/17/21 15:13 124 H 12/17/21 12:55 97.7 F 103 H 20 129/80 99 12/17/21 06:23 116 H 12/17/21 08:05 97.5 F L 78 21 129/78 100 Room Air PG Care Time/CCT Total # of Minutes Spent Total Time Spent with Patient: Total time spent is greater than 50% in coordination of care (as documented) at patient's floor/unit and/or counseling patient: Coding Level of Care Code 86022 Subseq Hosp Care Lvl 3 Diagnoses Methamphetamine intoxication F15.929 Leukocytosis D72.825 Leukocytosis type: bandemia Hypokalemia E87.6 Tobacco use disorder F17.200 (1) Leukocytosis Leukocytosis type: bandemia Qualified Code(s): D72.825 - Bandemia
[2021-12-17] MEDS: OLANZapine ZYDIS 5 MG ORALLY DIS. TAB PO SCH (23:00)
--- NOTE | 2021-12-18 08:40 | Electrocardiogram Report ---
Test Reason : Blood Pressure : / mmHG Vent. Rate : 106 BPM Atrial Rate : 106 BPM P-R Int : 116 ms QRS Dur : 086 ms QT Int : 324 ms P-R-T Axes : 072 092 061 degrees QTc Int : 430 ms Sinus tachycardia Rightward axis Borderline ECG When compared with ECG of 15-DEC-2021 12:46, No significant change was found Confirmed by Dalton Freire ([id number]) on 12/18/2021 8:39:43 AM Referred By: REFERRED SELF Confirmed By:Dalton Freire
[2021-12-18] MEDS: NICOTINE 21 MG/24 HR TDSY TD SCH (08:47)
[2021-12-18] MEDS: OLANZapine ZYDIS 5 MG ORALLY DIS. TAB PO SCH ×2 (08:48→20:22)
--- NOTE | 2021-12-18 12:52 | Psychiatric Progress Note ---
Date of Service December 18, 2021 Impression / Recommendations Impression 26 yo admitted medically with methamphetamine induced psychosis as well as unspecified depression likely a combination of substance-induced as well as MDD. At this point risk of harm to self and others is moderate and increased due to substance use and passive SI but psychosis lessening significantly and motivated for residential substance use treatment which will be biggest and most significant modifiable risk factor to reduce acute and chronic risk of self- harm. he remains motivated for substance use treatment. Tolerating olanzapine well without side effects. (1) Methamphetamine intoxication: (2) Methamphetamine-induced psychotic disorder: (3) Depression: Plan 12/18/21: -continue with olanzapine 2.5mg BID po -Behavioral emergency would use: olanzapine 5mg IM (continue to monitor QTc, ensure <500ms) -Agree with ativan as this can help with methamphetamine induced psychosis and agitation -Cannot leave AMA -Continue 1-on-1 given paranoia at times requiring redirection/reassurance Interval History Identifying Information 26 yo man currently living with his grandmother in [facility] with history of depression and polysubstance use admitted medically for methamphetamine intoxication. Psychiatry consulted for recommendations for psychosis. Chief Complaint "I'm tired". Review of Systems Notes sleeping a lot, eating Subjective Subjective Patient was seen & assessed and interval progress reviewed. Increased paranoia last night requiring haldol 5mg IV prn. Today sleeping but wakes easily and cooperative and fully oriented. Feels tired but also feels that "when I am talking my thoughts are clearer". Still with some depression and passive SI "a little bit". Feels his thoughts remains "pretty slow". Denies any paranoia currently but recalls feeling scared last night noting "being in a strange place without my family makes it hard". Remains motivated for substance use treatment. Physical Exam Psychiatric Orientation: alert and oriented x 3 Apperance: appropriately dressed and appropriately groomed Eye Contact: + fair eye contact Motor Behavior: no abnormal motor movements Speech: normal rate/rhythm/volume of speech Affect: + anxious affect Mood: + depressed mood and + anxious mood Thought Content: + paranoid and reality based without delusions Suicidal Thoughts: denies suicidal plan and denies suicidal intent; + reports suicidal thoughts (passive SI, improving) Homicidal Thoughts: denies homicidal thoughts Hallucinations: no auditory hallucinations and no visual hallucinations Cognition: recent memory grossly intact, remote memory grossly intact, attention grossly intact and language grossly intact Estimated Intelligence: consistent with education level Insight: + limited insight Judgement: + limited judgement Vital Signs (Past 24 Hours) Last Vital Signs Temp 36.4 C L 12/18/21 07:28 Pulse 85 12/18/21 08:23 Resp 16 12/18/21 07:28 BP 118/76 12/18/21 07:28 Pulse Ox 99 12/18/21 07:28 O2 Del Method 12/18/21 08:23 O2 Flow Rate 0 12/15/21 12:47 Results & Data ([facility]) Current Inpatient Medications Current Inpatient Medications: Current Inpatient Medications Acetaminophen (Acetaminophen 325 Mg Tab) 650 mg PO Q4H PRN PRN Reason: pain/fever Stop: 01/14/22 21:03 Lorazepam 2 mg/ Syringe 2 mls @ 2 mls/min IV Q4H PRN PRN Reason: severe agitation Stop: 01/15/22 02:59 Last Admin: 12/17/21 15:13 Dose: 2 mls/min Miscellaneous (Remove Nicoderm Patch) 1 each N/A DAILY@0859 [facility] Stop: 01/15/22 11:14 Last Admin: 12/18/21 08:47 Dose: 1 each Nicotine (Nicotine 21 Mg/24 Hr Tdsy) 21 mg TD QAM [facility] Stop: 01/15/22 11:14 Last Admin: 12/18/21 08:47 Dose: 21 mg Nicotine Polacrilex (Nicotine Polacrilex 2 Mg Gum) 1 piece MT PRN PRN PRN Reason: nicotine cravings Stop: 01/16/22 14:08 Olanzapine (Olanzapine Zydis 5 Mg Orally Dis. Tab) 2.5 mg PO BID [facility] Stop: 01/16/22 20:59 Last Admin: 12/18/21 08:48 Dose: 2.5 mg Olanzapine (Olanzapine 10 Mg/2.1 Ml Sdv) 5 mg IM Q6H PRN PRN Reason: Agitation Stop: 01/16/22 16:29 Ondansetron HCl (Ondansetron Inj 2 Mg/Ml 2 Ml Vial) 4 mg IV Q6H PRN PRN Reason: Nausea Stop: 01/14/22 21:03
--- NOTE | 2021-12-18 17:44 | Hospitalist Progress Note ---
Date of Service December 18, 2021 Assessment & Plan (1) Methamphetamine intoxication: Plan: with improving tachycardia and tremulousness -zyprexa 2.5 mg bid - Ativan prn agitation - - Consult case management for interest in inpatient drug rehab - UDS ordered by ED, methamphetamine, mdma Psychiatry evaluation feels patient is a danger to himself at this current time should not be allowed to leave AMA. He will be given Ativan and Zyprexa. Zyprexa be scheduled at 2.5 twice daily, normal QT intervals in the morning keep him on the monitor have as needed Haldol and eventually IM Zyprexa for agitation - (2) Leukocytosis: Plan: - Very low index of suspicion for acute infection, suspect reactive from meth use - Denies IV drug use, therefore low risk of endocarditis - Echo ordered - no evidence of vegetation - Given a dose of Cefepime in ED, will hold off on any further antibiotics - Blood cultures collected, negative to date - CRP and Procal WNL - WBC count greatly improved (3) Hypokalemia: Plan: - Potassium supplemented/normalized this AM (4) Tobacco use disorder: Plan: - Tobacco cessation encouraged - Nicotine patch ordered last night by resident - Given that he smokes >1 ppd, increase to 21mg TD daily Admission and Anticipated Discharge Date Admission Date: December 15, 2021 Subjective pt is now more sedated but Psychiatry still endorses the BID zyprexa, last pm had some increased agitation and required additional medications Review of Systems Review of Systems: Moderate distress and now sedation no headache, no visual changes no speech or swallowing issues no chest pain, pressure or palpitations no shortness of breath, cough or wheezes no abdominal pain, nausea or vomiting, diarrhea or constipation no dysuria, hematuria or frequency no focal joint pain or swelling no back pain, CVA tenderness or radicular pain no bruising, bleeding or rashes no focal signs of weakness or numbness or altered sensation no complaints of anxiety or depression.. Physical Exam Physical Exam: The patient appeared stable slightly confused slight psychomotor agitation Vital signs as documented. Lungs are clear to auscultation and appear unlabored Cardiac exam, Rhythm is regular.. No murmurs, rubs or gallops. Abdominal exam reveals normal bowel sounds, soft non tender, no masses Extremities are nonedematous and both pedal pulses are normal. Neurologic exam is alert and oriented x3, no focal loss of strength or sensation Skin is without bruises or rashes Psychologically is with agitation is likely still withdrawing from methadone to the endpoints of other substances that he took prior to admission Results & Data Results & Data ([facility]) Vital Signs (Past 12 Hours) Vital Signs Temp Pulse Pulse Resp BP Pulse Ox O2 Del Method 12/18/21 16:35 98.4 F 103 H 18 112/83 100 12/18/21 14:16 98.4 F 96 H 18 113/70 99 12/18/21 08:23 85 12/18/21 08:23 Room Air 12/18/21 07:28 97.5 F L 94 H 16 118/76 99 Room Air PG Care Time/CCT Total # of Minutes Spent Total Time Spent with Patient: Total time spent is greater than 50% in coordination of care (as documented) at patient's floor/unit and/or counseling patient: Coding Level of Care Code 92232 Subseq Hosp Care Lvl 2 Diagnoses Methamphetamine intoxication F15.929 Leukocytosis D72.825 Leukocytosis type: bandemia Hypokalemia E87.6 Tobacco use disorder F17.200 (1) Leukocytosis Leukocytosis type: bandemia Qualified Code(s): D72.825 - Bandemia
[2021-12-18] MEDS: LORazepam 2 MG in SYRINGE 0 ML IV PRN (23:14)
[2021-12-19] MEDS: NICOTINE 21 MG/24 HR TDSY TD SCH (08:47)
[2021-12-19] MEDS: OLANZapine ZYDIS 5 MG ORALLY DIS. TAB PO SCH (08:48)
--- NOTE | 2021-12-19 12:25 | Psychiatric Progress Note ---
Date of Service December 19, 2021 Impression / Recommendations Impression 26 yo admitted medically for methamphetamine ingestion with methamphetamine induced psychosis which has resolved. Initially with some depression but mood is improving as well. Acute risk of harm to self is low, denies SI and motivated for substance use treatment which is most significant modifiable risk factor and future oriented with good family support. 12/19/21: Psychosis improved, plan for residential substance use treatment once medically stable. (1) Methamphetamine intoxication: (2) Methamphetamine-induced psychotic disorder: (3) Depression: Plan 12/19/21: -Given fatigue would switch to olanzapine 2.5mg BID po prn for paranoia/anxiety -Discontinue 1-on-1 as no longer paranoia nor concern for acute safety -Can leave AMA -Proceed with residential substance use treatment, case management cooridnating this 12/18/21: -continue with olanzapine 2.5mg BID po -Behavioral emergency would use: olanzapine 5mg IM (continue to monitor QTc, e nsure <500ms) -Agree with ativan as this can help with methamphetamine induced psychosis and agitation -Cannot leave AMA -Continue 1-on-1 given paranoia at times requiring redirection/reassurance Interval History Identifying Information 26 yo man currently living with his grandmother in [facility] with history of depression and polysubstance use admitted medically for methamphetamine intoxication. Psychiatry consulted for recommendations for psychosis. Chief Complaint "I'm still really tired". Review of Systems Notes increased sleep, stable appetite Subjective Subjective Patient was seen & assessed and interval progress reviewed. Slept well, no paranoia overnight. Consistently denying SI and remains voluntary for residential substance use treatment. Mood improving, main complaint is ongoing tiredness. He feels this is more fatigue than he would typically experience when withdrawing from methamphetamine so discussed it could be from olanzapine and option to switch to as needed use for paranoia which he prefers. He feels safe and agrees to alert nursing if this were to change. Ate breakfast. Physical Exam Psychiatric Orientation: alert and oriented x 3 Apperance: appropriately dressed and appropriately groomed Eye Contact: good eye contact Motor Behavior: no abnormal motor movements Speech: normal rate/rhythm/volume of speech Affect: + constricted affect Mood: no depressed mood and no anxious mood Thought Process: clear/coherent thought process Thought Content: reality based without delusions; not paranoid Suicidal Thoughts: denies suicidal thoughts Homicidal Thoughts: denies homicidal thoughts Hallucinations: no auditory hallucinations and no visual hallucinations Cognition: recent memory grossly intact, remote memory grossly intact, attention grossly intact and language grossly intact Estimated Intelligence: consistent with education level Insight: + fair insight Judgement: + fair judgement Vital Signs (Past 24 Hours) Last Vital Signs Temp 36.7 C 12/19/21 08:40 Pulse 99 H 12/19/21 08:40 Resp 18 12/19/21 08:40 BP 109/72 12/19/21 08:40 Pulse Ox 97 12/19/21 08:40 O2 Del Method 12/19/21 08:40 O2 Flow Rate 0 12/15/21 12:47 Results & Data ([facility]) Current Inpatient Medications Current Inpatient Medications: Current Inpatient Medications Acetaminophen (Acetaminophen 325 Mg Tab) 650 mg PO Q4H PRN PRN Reason: pain/fever Stop: 01/14/22 21:03 Lorazepam 2 mg/ Syringe 2 mls @ 2 mls/min IV Q4H PRN PRN Reason: severe agitation Stop: 01/15/22 02:59 Last Admin: 12/18/21 23:14 Dose: 2 mls/min Miscellaneous (Remove Nicoderm Patch) 1 each N/A DAILY@0859 [facility] Stop: 01/15/22 11:14 Last Admin: 12/19/21 08:47 Dose: 1 each Nicotine (Nicotine 21 Mg/24 Hr Tdsy) 21 mg TD QAM [facility] Stop: 01/15/22 11:14 Last Admin: 12/19/21 08:47 Dose: 21 mg Nicotine Polacrilex (Nicotine Polacrilex 2 Mg Gum) 1 piece MT PRN PRN PRN Reason: nicotine cravings Stop: 01/16/22 14:08 Olanzapine (Olanzapine Zydis 5 Mg Orally Dis. Tab) 2.5 mg PO BID [facility] Stop: 01/16/22 20:59 Last Admin: 12/19/21 08:48 Dose: 2.5 mg Olanzapine (Olanzapine 10 Mg/2.1 Ml Sdv) 5 mg IM Q6H PRN PRN Reason: Agitation Stop: 01/16/22 16:29 Ondansetron HCl (Ondansetron Inj 2 Mg/Ml 2 Ml Vial) 4 mg IV Q6H PRN PRN Reason: Nausea Stop: 01/14/22 21:03
--- NOTE | 2021-12-19 15:17 | Hospitalist Progress Note ---
Date of Service December 19, 2021 Assessment & Plan (1) Methamphetamine intoxication: Plan: with improving tachycardia and tremulousness -zyprexa 2.5 mg bid prn - Ativan prn agitation - - Consult case management for interest in inpatient drug rehab - UDS ordered by ED, methamphetamine, mdma Psychiatry evaluation feels patient is no longer a danger to himself at this current time, he can come off 1:1. He will be given Ativan and Zyprexaprn pt transferred off tele at this time (2) Leukocytosis: Plan: - Very low index of suspicion for acute infection, suspect reactive from meth use - Denies IV drug use, therefore low risk of endocarditis - Echo ordered - no evidence of vegetation - Given a dose of Cefepime in ED, will hold off on any further antibiotics - Blood cultures collected, negative to date - CRP and Procal WNL - WBC count greatly improved (3) Hypokalemia: Plan: - Potassium supplemented/normalized (4) Tobacco use disorder: Plan: - Tobacco cessation encouraged - Nicotine patch ordered last night by resident - Given that he smokes >1 ppd, increase to 21mg TD daily Admission and Anticipated Discharge Date Admission Date: December 15, 2021 Subjective pt is now more sedated but Psychiatry recommends reducing to prn zyprexa, Review of Systems Review of Systems: Moderate distress and now sedation no headache, no visual changes no speech or swallowing issues no chest pain, pressure or palpitations no shortness of breath, cough or wheezes no abdominal pain, nausea or vomiting, diarrhea or constipation no dysuria, hematuria or frequency no focal joint pain or swelling no back pain, CVA tenderness or radicular pain no bruising, bleeding or rashes no focal signs of weakness or numbness or altered sensation no complaints of anxiety or depression.. Physical Exam Physical Exam: The patient appeared stable slightly confused slight psychomotor agitation Vital signs as documented. Lungs are clear to auscultation and appear unlabored Cardiac exam, Rhythm is regular.. No murmurs, rubs or gallops. Abdominal exam reveals normal bowel sounds, soft non tender, no masses Extremities are nonedematous and both pedal pulses are normal. Neurologic exam is alert and oriented x3, no focal loss of strength or sensation Skin is without bruises or rashes Psychologically is with agitation is likely still withdrawing from methadone to the endpoints of other substances that he took prior to admission Results & Data Results & Data ([facility]) Vital Signs (Past 12 Hours) Vital Signs Temp Pulse Pulse Resp BP Pulse Ox O2 Del Method 12/19/21 12:55 98.1 F 98 H 18 112/75 97 Room Air 12/19/21 08:40 98.1 F 99 H 18 109/72 97 Room Air 12/19/21 07:00 94 H PG Care Time/CCT Total # of Minutes Spent Total Time Spent with Patient: Total time spent is greater than 50% in coordination of care (as documented) at patient's floor/unit and/or counseling patient: Coding Level of Care Code 04267 Subseq Hosp Care Lvl 2 Diagnoses Methamphetamine intoxication F15.929 Leukocytosis D72.825 Leukocytosis type: bandemia Hypokalemia E87.6 Tobacco use disorder F17.200 (1) Leukocytosis Leukocytosis type: bandemia Qualified Code(s): D72.825 - Bandemia
[2021-12-19] MEDS ORDERED: OLANZapine ZYDIS 5 MG ORALLY DIS. TAB PO PRN (18:35)
[2021-12-20] MEDS: NICOTINE 21 MG/24 HR TDSY TD SCH (09:43)
--- NOTE | 2021-12-20 13:17 | Discharge Summary ---
Date of Service December 20, 2021 Admission HPI Per Admitting Provider Saturnino Becerril is a 26 yo male with a pmhx of opioid abuse with a prior overdose at age 14 who presented to the ER this afternoon accompanied by his father for evaluation after drug overdose and seizure-like activity was witnessed this morning. Patient who is currently awake and somewhat alert, reports that he overdosed on methamphetamine. He notes that he has been consistently using meth for the past 4 months, on an every other day basis. He either smokes it or snorts it. He normally lives with his grandmother, has been in and out of work. Father believes that he has been depressed. Was planning to take him today to apply for medical assistance in order for him to get insurance to cover treatment for depression. Per his father, he states that yesterday his grandmother reported that he was not acting normally. Was pacing up and down the stairs and was sweating. He left his grandmother's home and went to his father's. Per his dad, he was coherent and they were sitting together watching TV. Today, prior to leaving the house, father found patient in the corner convulsing and profusely sweating. He summoned EMS services and he was brought to the ER for further evaluation. In the ED, his HR is in the 130s, EKG demonstrates sinus tachycardia. His wbc count is markedly elevated at 30,420 but patient is afebrile, denies shortness of breath or chest pain. His potassium is slightly low at 3.2. CRP and pr ocalcitonin are both negative. He reports this is the first time he has overdosed on meth. He recognizes he has a problem and is interested in rehab. He denies use of IV drugs including heroin. Denies use of marijuana or alcohol use. He denies current opioid use. ED medicated pt with 2L of IVF, a dose of Ativan 2mg IV x1 and an amp of D50. He was also given a dose of Cefepime due to his leukocytosis. Pt has been referred to the hospitalist service for admission. Principal Diagnosis methamphetamine overdose Depression Discharge Exam The patient appeared stable Vital signs as documented. Lungs are clear to auscultation and appear unlabored Cardiac exam, Rhythm is regular.. No murmurs, rubs or gallops. Abdominal exam reveals normal bowel sounds, soft non tender, no masses Extremities are nonedematous and both pedal pulses are normal. Neurologic exam is alert and oriented, no focal loss of strength or sensation Skin is without bruises or rashes Psychologically is without concerns for anxiety or depression. Discharge Data Allergies Allergy/AdvReac Type Severity Reaction Status Date / Time amoxicillin Allergy Intermediate Hives Verified 12/15/21 16:09 Consultations 12/15/21 15:50 ED Decision to Admit Stat 12/16/21 16:35 Consult Psychiatry Routine Hospital Course (1) Methamphetamine intoxication: Resolved no needing as needed medication - - Consult case management for interest in inpatient drug rehab, because of his insurance status vision is involved and attempts to coordinate with postdischarge rehabilitation are currently underway -Urine tox screen showed, methamphetamine, mdma Psychiatry evaluation feels patient is no longer a danger to himself at this current time, he can come off 1:1. (2) Leukocytosis: - Very low index of suspicion for acute infection, suspect reactive from meth use - Denies IV drug use, therefore low risk of endocarditis - Echo ordered - no evidence of vegetation - Given a dose of Cefepime in ED, will hold off on any further antibiotics - Blood cultures collected, negative to date - CRP and Procal WNL - WBC count greatly improved (3) Hypokalemia: - Potassium supplemented/normalized (4) Tobacco use disorder: - Tobacco cessation encouraged - Nicotine patch ordered last night by resident - Given that he smokes >1 ppd, increase to 21mg TD daily Total Time Total Time Spent Total Time Spent (In Minutes): It required greater than 30 minutes to prepare this patient for discharge Discharge Plan Discharge Items Patient Disposition: Home - Self-Care Reason For Visit: METH OVERDOSE Discharge Diagnosis: methamphetamine overdose Activity: Resume your previous activity Non-emergency contact: Primary Care Provider Call non-emergency contact if: your symptoms worsen Follow-up/Referrals: PCP,NO [Primary Care Provider] - (PATIENT STATES HE WILL MAKE HIS OWN PCP APPOINTMENT.) Diet: Regular Addtl Attending Provider Instructions: The only way to avoid a relapse is completely stay away from anyone that maybe able to tempt you or to supply you with any substances Please follow up with the [facility] , they will call you at home to arrange for your rehab Strongly consider using a nicotine patch or gum to help avoid temptation for smoking post discharge Pending Studies at Discharge: No Stand-Alone Forms: [facility], Smoking Cessation Medications and DC Order Prescriptions: Continued acetaminophen [Tylenol Extra Strength] 500 mg Tablet 1,000 mg PO DIRECTED PRN (Reason: Pain) Discharge Orders: Discharge Order (Routine); Ordered 12/20/21 Ordered By: Ra Doyle Admission Data Admit Date/Time: 12/15/21 17:12 Attending Provider: Ra Doyle Admit Provider: Richard Dominguez Primary Care Provider: PCP,NO Other Providers: Richard Dominguez ; Becky Rg ; Renae Schuster ; Rachna Pate Other Interventions: Discharge Summary Assessment (RN) Last Done: 12/20/21 15:24 Coding Level of Care Code D/C DAY MANAGEMENT >30 MINS Diagnoses Methamphetamine intoxication F15.929 Leukocytosis D72.825 Leukocytosis type: bandemia Hypokalemia E87.6 Tobacco use disorder F17.200
[2021-12-22 08:24] LABS: Amphetamine Urine, Confirm 4430 ng/mL (<250); MDA negative; MDEA negative; MDMA (Ecstasy) Urine, Confirm negative; Methamphetamine, Ur Confirm >15000 ng/mL (<250)
== END 2021-12-20 15:59 | disposition home or self-care (01) | DRG 897 ==
LOC: ED 12:34 → SUATTDRO 17:12 → 2W 17:12 → 2S 12-16 01:18 → 3W 12-19 18:18
DX: R56.9 Unspecified convulsions; Z88.1 Allergy status to other antibiotic agents; E87.6 Hypokalemia; F32.9 Major depressive disorder, single episode, unspecified; F11.11 Opioid abuse, in remission; F15.229 Other stimulant dependence with intoxication, unspecified; Y92.019 Unspecified place in single-family (private) house as the place of occurrence of the external cause; F15.259 Other stimulant dependence with stimulant-induced psychotic disorder, unspecified; F17.210 Nicotine dependence, cigarettes, uncomplicated; R00.0 Tachycardia, unspecified